=== PATIENT | female | born 1975 | race Hispanic/Latino ===

== ENCOUNTER 2018-04-09 13:49 | Emergency (ER) | payer SELFPAY ==
[2018-04-09 14:25] VITALS: BP 135/88; PULSE 68; RESP 18; TEMP 98; O2SAT 100
--- NOTE | 2018-04-09 14:50 | C.PDOC ---
History Of Present Illness 43 year old female arrives to ED in police custody for evaluation. As per police , pt was found unresponsive with heroin. Pt was given 2mg of nasal Narcan. At present time, pt is awake, alert, oriented x3, and answering questions appropriately. Pt states she feels fine and wants to leave. She denies chest pain, shortness of breath, headache, dizziness, abdominal pain, n/v/d, or any other physical complaints at this time. Time Seen by Provider: 04/09/18 14:01 Chief Complaint (Nursing): Substance Abuse History Per: Patient History/Exam Limitations: no limitations Onset/Duration Of Symptoms: Days Current Symptoms Are (Timing): Still Present Associated Symptoms: denies: Suicidal Thoughts, Suicidal Plan Additional History Per: Law Enforcement Past Medical History Reviewed: Historical Data, Nursing Documentation, Vital Signs Vital Signs: Last Vital Signs Temp 98 F 04/09/18 14:19 Pulse 68 04/09/18 14:19 Resp 18 04/09/18 14:19 BP 135/88 04/09/18 14:19 Pulse Ox 100 04/09/18 15:07 Family History: States: Unknown Family Hx - Social History Hx Alcohol Use: Yes Hx Substance Use: Yes - Immunization History Hx Tetanus Toxoid Vaccination: No Hx Influenza Vaccination: No Hx Pneumococcal Vaccination: No Review Of Systems Except As Marked, All Systems Reviewed And Found Negative. Constitutional: Negative for: Fever, Chills Cardiovascular: Negative for: Chest Pain, Palpitations Respiratory: Negative for: Cough, Shortness of Breath Gastrointestinal: Negative for: Nausea, Vomiting, Abdominal Pain Neurological: Negative for: Headache, Dizziness Physical Exam - Physical Exam Appears: Non-toxic, No Acute Distress Skin: Normal Color, Warm, Dry, No Rash Head: Atraumatic, Normacephalic Eye(s): bilateral: Normal Inspection Oral Mucosa: Moist Neck: Normal ROM, No Midline Cervical Tenderness, No Paracervical Tenderness, Supple Chest: Symmetrical, No Tenderness Cardiovascular: Rhythm Regular, No Friction Rub, No Murmur Respiratory: Normal Breath Sounds, No Rales, No Rhonchi, No Wheezing Gastrointestinal/Abdominal: Soft, No Tenderness Back: Normal Inspection, No Vertebral Tenderness, No Paraspinal Tenderness Extremity: Normal ROM, No Tenderness, No Deformity, No Swelling Neurological/Psych: Oriented x3, Normal Speech, Normal Motor Gait: Steady ED Course And Treatment O2 Sat by Pulse Oximetry: 100 (RA) Pulse Ox Interpretation: Normal Medical Decision Making Medical Decision Making: Patient is requesting methadone, instructed that she would need to follow up with Methadone program. Disposition - Disposition Referrals: [facility] at [facility] [Outside] Disposition: HOME/ ROUTINE Disposition Time: 14:47 Condition: STABLE Additional Instructions: Follow up with the Methadone program. Return if worsened. Instructions: Drug Abuse Treatment Forms: [employer] (Ecuadorean) - Clinical Impression Clinical Impression: Methadone use - PA / [employer] / Resident Statement MD/DO has reviewed & agrees with the documentation as recorded. - Scribe Statement The provider has reviewed the documentation as recorded by the Scribe KP All medical record entries made by the Scribe were at my direction and personally dictated by me. I have reviewed the chart and agree that the record accurately reflects my personal performance of the history, physical exam, medical decision making, and the department course for this patient. I have also personally directed, reviewed, and agree with the discharge instructions and disposition.
== END 2018-04-09 15:13 | disposition home or self-care (01) ==
LOC: C.ER 13:49
DX: F11.90 Opioid use, unspecified, uncomplicated (principal)